=== PATIENT | male | born 1925 | race Caucasian/White ===

== ENCOUNTER 2017-03-23 11:49 | Inpatient (IN) | payer OTHER ==
[~2017-03-23] VITALS: Ht 160 cm; Wt 55.2 kg
[2017-03-23 11:51] VITALS: BP 130/54
[2017-03-23] MEDS ORDERED: KLOR-CON M2020 MEQ PO (12:13)
[2017-03-23] MEDS ORDERED: LASIX 40 MG TAB40 M2 PO (12:14)
[2017-03-23] MEDS ORDERED: CELEXA20 MG PO (12:14)
[2017-03-23] MEDS ORDERED: LOPRESSOR50 PO (12:14)
[2017-03-23] MEDS ORDERED: GALANTAMINE HBR PO (12:14)
[2017-03-23] MEDS ORDERED: FLOMAX0.4 MG PO (12:14)
[2017-03-23] MEDS ORDERED: PLAVIX 75 MG TA75 M1 PO (12:14)
[2017-03-23] MEDS ORDERED: NAMENDA XR28 MG PO ×2 (12:15)
[2017-03-23] MEDS ORDERED: SEROQUEL 25 MG25 M1 PO (12:15)
[2017-03-23] MEDS ORDERED: ZOCOR20 MG PO (12:15)
[2017-03-23] MEDS ORDERED: PRINIVIL40 MG PO (12:16)
[2017-03-23 12:31] LABS: ABSOLUTE NEUTROPHILS 7.8 thou/uL (1.4-8.2); BASOPHILS 0.4 % (0.0-2.0); EOSINOPHILS 1.4 % (0.0-3.0); HEMATOCRIT 38.6 % (42.0-52.0); HEMOGLOBIN 12.7 gm/dL (14.0-18.0); LYMPHOCYTES 12.3 % (24.0-44.0); MCV 93.9 fL (80.0-100.0); MONOCYTES 9.3 % (1.0-8.0); PLATELET COUNT 158 thou/uL (150-400); POLYS 76.6 % (36.0-66.0); RBC 4.11 mil/uL (4.50-6.00); RDW 13.9 % (10.5-14.5); WBC 10.1 thou/uL (4.0-11.0)
[2017-03-23 12:34] LABS: CALCIUM 8.9 mg/dL (8.5-10.1); MANUAL DIFF NO; POTASSIUM 4.1 mmol/L (3.5-5.1)
[2017-03-23 12:40] LABS: ALBUMIN 3.6 g/dL (3.4-5.0); DIRECT BILIRUBIN 0.2 mg/dL (<0.1-0.3); TOTAL BILIRUBIN 0.8 mg/dL (<0.1-1.0); TOTAL PROTEIN 7.5 g/dL (6.4-8.2)
[2017-03-23 12:48] LABS: APTT 22.9 Seconds (24.5-32.8); INR 1.1
[2017-03-23 12:53] LABS: URINE BILIRUBIN NEGATIVE (Negative); URINE BLOOD TRACE (Negative); URINE COLOR YELLOW; URINE GLUCOSE-RANDOM* NEGATIVE (Negative); URINE KETONES TRACE (Negative); URINE LEUKOCYTES-REFLEX NEGATIVE (Negative); URINE PROTEIN (DIPSTICK) TRACE (Negative); URINE SPECIFIC GRAVITY 1.015 (1.003-1.035); URINE UROBILINOGEN 0.2 E.U./dl (0.2-1.0)
[2017-03-23 16:08] VITALS: BP 116/71
[2017-03-23 19:16] VITALS: BP 130/69
[2017-03-24] MEDS ORDERED: KLOR-CON 1010 MEQ PO (00:47)
[2017-03-24] MEDS ORDERED: GALANTAMINE HBR PO (00:48)
[2017-03-24] MEDS ORDERED: LASIX 40 MG TAB40 M2 PO (00:48)
[2017-03-24] MEDS ORDERED: NAMENDA 10 MG T10 MG PO (00:49)
[2017-03-24] MEDS ORDERED: ALPHAGAN P10 ML OPHTHALMIC (00:51)
[2017-03-24] MEDS ORDERED: TRAVATAN Z2.5 ML OPHTHALMIC (00:51)
[2017-03-24 03:56] VITALS: BP 165/72
[2017-03-24 05:17] LABS: ABSOLUTE NEUTROPHILS 6.1 thou/uL (1.4-8.2); BASOPHILS 0.5 % (0.0-2.0); EOSINOPHILS 1.9 % (0.0-3.0); HEMATOCRIT 38.9 % (42.0-52.0); HEMOGLOBIN 12.7 gm/dL (14.0-18.0); LYMPHOCYTES 22.8 % (24.0-44.0); MCH 30.6 pg (26.0-34.0); MCHC 32.7 g/dL (28.0-37.0); MCV 93.7 fL (80.0-100.0); MONOCYTES 11.8 % (1.0-8.0); PLATELET COUNT 164 thou/uL (150-400); RBC 4.16 mil/uL (4.50-6.00); RDW 14.4 % (10.5-14.5); WBC 9.7 thou/uL (4.0-11.0)
[2017-03-24 05:21] LABS: MANUAL DIFF NO
[2017-03-24 05:33] LABS: CALCIUM 8.8 mg/dL (8.5-10.1); CREATININE 1.3 mg/dL (0.7-1.3)
[2017-03-24 07:54] VITALS: BP 154/79
[2017-03-24 15:50] VITALS: BP 145/72
[2017-03-24 19:13] VITALS: BP 115/59
[2017-03-24 23:56] VITALS: BP 163/85
[2017-03-25 04:13] VITALS: BP 139/71
[2017-03-25 06:06] LABS: ABSOLUTE NEUTROPHILS 4.7 thou/uL (1.4-8.2); BASOPHILS 0.8 % (0.0-2.0); EOSINOPHILS 3.5 % (0.0-3.0); HEMATOCRIT 37.3 % (42.0-52.0); HEMOGLOBIN 12.4 gm/dL (14.0-18.0); LYMPHOCYTES 24.5 % (24.0-44.0); MANUAL DIFF NO; MCHC 33.2 g/dL (28.0-37.0); MCV 93.2 fL (80.0-100.0); MONOCYTES 11.1 % (1.0-8.0); PLATELET COUNT 156 thou/uL (150-400); POLYS 60.1 % (36.0-66.0); WBC 7.8 thou/uL (4.0-11.0)
[2017-03-25 06:18] LABS: CALCIUM 8.5 mg/dL (8.5-10.1); MAGNESIUM 1.9 mg/dL (1.8-2.4)
[2017-03-25 08:29] LABS: TSH 1.961 uIU/mL (0.358-3.740)
[2017-03-25 08:49] VITALS: BP 163/96
[2017-03-25 11:56] VITALS: BP 113/80
[2017-03-25 14:44] VITALS: BP 86/55
[2017-03-25 15:37] VITALS: BP 131/70
[2017-03-25 15:56] LABS: ABG SAMPLE TYPE ARTERIAL; BE(vivo) -1.9 mmol/L (-2 to +3); HCO3 21.6 mmol/L (22.0-26.0); LACTATE 0.77 mmol/L (0.5-2.0); O2(CT) 17.1 mL/dL (15.0-23.0); O2Hb 96.1 % (92.0-98.0); PO2 84.3 mmHg (80.0-100.0); STICK SITE L.RADIAL; pH 7.434 (7.360-7.450); sO2 96.7 % (92.0-98.0); tCO2 22.6 mmol/L (24.0-30.0)
[2017-03-25 16:11] LABS: FREE T4 1.34 ng/dL (0.82-1.77)
[2017-03-25 19:09] LABS: URINE BILIRUBIN NEGATIVE (Negative); URINE BLOOD 1+ (Negative); URINE COLOR YELLOW; URINE GLUCOSE-RANDOM* NEGATIVE (Negative); URINE KETONES NEGATIVE (Negative); URINE NITRITE NEGATIVE (Negative); URINE PROTEIN (DIPSTICK) NEGATIVE (Negative); URINE SPECIFIC GRAVITY 1.025 (1.003-1.035); URINE UROBILINOGEN 0.2 E.U./dl (0.2-1.0)
[2017-03-25 19:19] LABS: CASTS None Seen /LPF (None Seen); CRYSTALS None Seen /LPF (None Seen); SQUAMOUS None Seen /LPF (0-3); URINE WBC 0-5 Rare /HPF (0-5)
[2017-03-25 19:20] LABS: BACTERIA 1-9 Few /HPF (None Seen); URINE RBC 0-2 Rare /HPF (0-2)
[2017-03-25 19:29] VITALS: BP 119/63
[2017-03-26 05:10] LABS: GLYCOHEMOGLOBIN (HGB A1C) 5.5 % (4.8-5.6)
[2017-03-26 07:25] VITALS: BP 164/73
[2017-03-26 09:04] LABS: ABSOLUTE NEUTROPHILS 6.3 thou/uL (1.4-8.2); BASOPHILS 0.4 % (0.0-2.0); EOSINOPHILS 2.8 % (0.0-3.0); HEMATOCRIT 36.1 % (42.0-52.0); HEMOGLOBIN 12.1 gm/dL (14.0-18.0); LYMPHOCYTES 21.7 % (24.0-44.0); MANUAL DIFF NO; MCHC 33.5 g/dL (28.0-37.0); MCV 92.5 fL (80.0-100.0); MONOCYTES 9.5 % (1.0-8.0); PLATELET COUNT 163 thou/uL (150-400); POLYS 65.6 % (36.0-66.0); RDW 13.8 % (10.5-14.5); WBC 9.6 thou/uL (4.0-11.0)
[2017-03-26 09:21] LABS: ALBUMIN 3.1 g/dL (3.4-5.0); CALCIUM 8.8 mg/dL (8.5-10.1); MAGNESIUM 1.7 mg/dL (1.8-2.4); POTASSIUM 3.4 mmol/L (3.5-5.1); TOTAL BILIRUBIN 1.3 mg/dL (<0.1-1.0); TOTAL PROTEIN 6.6 g/dL (6.4-8.2)
[2017-03-26 12:53] VITALS: BP 170/83
[2017-03-26 15:07] VITALS: BP 159/81
[2017-03-26 19:05] VITALS: BP 172/93
[2017-03-27 04:17] VITALS: BP 177/79
[2017-03-27 07:19] VITALS: BP 187/88
[2017-03-27 11:32] VITALS: BP 123/66
[2017-03-27 16:09] VITALS: BP 158/70
[2017-03-27 16:11] LABS: ALPHA TOCOPHEROL 8.4 mg/L (5.3-17.5)
[2017-03-27 19:30] VITALS: BP 152/64
[2017-03-28 04:30] VITALS: BP 147/69
[2017-03-28 07:39] VITALS: BP 183/85
[2017-03-28 11:11] VITALS: BP 159/72
== END 2017-03-28 14:49 | DRG 70 ==
LOC: ER 11:49 → EROBS 15:32 → 4W 15:32
PROVIDERS: Emergency Medicine; Internal Medicine; Internal Medicine Endocrinology, Diabetes & Metabolism; Psychiatry & Neurology Neurology
DX: G93.41 Metabolic encephalopathy (principal); N17.0 Acute kidney failure with tubular necrosis; F02.81 Dementia in other diseases classified elsewhere, unspecified severity, with behavioral disturbance; E46 Unspecified protein-calorie malnutrition; G20 Parkinson's disease; M54.5 Low back pain; E86.0 Dehydration; M62.81 Muscle weakness (generalized); R13.10 Dysphagia, unspecified; I95.2 Hypotension due to drugs; E78.5 Hyperlipidemia, unspecified; T42.8X5A Adverse effect of antiparkinsonism drugs and other central muscle-tone depressants, initial encounter; T43.215A Adverse effect of selective serotonin and norepinephrine reuptake inhibitors, initial encounter; T43.225A Adverse effect of selective serotonin reuptake inhibitors, initial encounter; Z95.0 Presence of cardiac pacemaker; Z86.73 Personal history of transient ischemic attack (TIA), and cerebral infarction without residual deficits; Z68.21 Body mass index [BMI] 21.0-21.9, adult; Z91.81 History of falling; Y92.89 Other specified places as the place of occurrence of the external cause; Z79.02 Long term (current) use of antithrombotics/antiplatelets; Z79.82 Long term (current) use of aspirin; Z79.899 Other long term (current) drug therapy
CPT/HCPCS: 10045